=== PATIENT | female | born 1990 | race Caucasian/White ===

== ENCOUNTER 2019-08-23 23:18 | Emergency (ER) | payer SELFPAY ==
[~2019-08-23] VITALS: Ht 157.5 cm; Wt 101.2 kg
[2019-08-23] MEDS ORDERED: BUTORPHANOL 2 MG VIAL. IM ONE (23:45)
[2019-08-23] MEDS ORDERED: METOCLOPRAMIDE HCL 10 MG/2 ML VIAL. IM ONE (23:45)
[2019-08-23] MEDS ORDERED: DEXAMETHASONE SOD PHOS 10 MG/ML VIAL. IM ONE (23:45)
--- NOTE | 2019-08-23 23:55 | PHYS DOC ---
Past History Past Medical History: Migraines Past Surgical History: Cholecystectomy, , Tubal ligation Alcohol Use: Occasionally General Adult EDM: Chief Complaint: HEADACHE HPI: HPI: Patient is a 29-year-old female who presents with complaint of headache for the last 5 days. Patient states that she has a history of migraines and this is typical of her migraines. Patient states that Imitrex is not working for her headache but she does admit that she has not taken it in over a week. Patient states that she does not like the way it makes her feel. She rates pain at a 7 to an 8 out of 10. Patient denies any fever. She states that she has had some nausea and some vomiting. She does indicate that she has photophobia and phonophobia associated with a headache. [] Review of Systems: Review of Systems: Constitutional: Denies fever or chills Eyes: Denies change in visual acuity Respiratory: Denies cough or shortness of breath Cardiovascular: Denies chest pain or edema GI: Denies abdominal pain, nausea, vomiting or diarrhea Neurologic: Complains of headache without focal weakness or sensory changes Heart Score: Risk Factors: Risk Factors: DM, Current or recent (<one month) smoker, HTN, HLP, family history of CAD, obesity. Risk Scores: Score 0 - 3: 2.5% MACE over next 6 weeks - Discharge Home Score 4 - 6: 20.3% MACE over next 6 weeks - Admit for Clinical Observation Score 7 - 10: 72.7% MACE over next 6 weeks - Early Invasive Strategies Current Medications: Current Meds: Current Medications Medications (Trade) Dose Ordered [facility] Start Time Stop Time Status Last Admin Dose Admin Butorphanol Tartrate (Stadol) 2 mg 1X ONCE 08/23/19 23:45 08/23/19 23:46 DC 08/23/19 23:49 2 MG Dexamethasone Sodium Phosphate (Decadron) 10 mg 1X ONCE 08/23/19 23:45 08/23/19 23:46 DC 08/23/19 23:49 10 MG Metoclopramide HCl (Reglan Vial) 10 mg 1X ONCE 08/23/19 23:45 08/23/19 23:46 DC 08/23/19 23:48 10 MG Allergies: Allergies: Allergies Coded Allergies Type Severity Reaction Last Updated Verified Unable to Assess 08/23/19 No Physical Exam: PE: Constitutional: Well developed, well nourished, no acute distress, non-toxic appearance. [] HENT: Normocephalic, atraumatic, bilateral external ears normal, oropharynx moist, no oral exudates, nose normal. [] Eyes: PERRLA, EOMI, conjunctiva normal, no discharge. [] Cardiovascular: Regular rate and rhythm [] Lungs & Thorax: Bilateral breath sounds clear to auscultation [] Extremities: No tenderness, no cyanosis, no clubbing, ROM intact, no edema. [] Neurologic: Alert and oriented X 3, no focal deficits noted. [] Current Patient Data: Vital Signs: Vital Signs Date Time Temp Pulse Resp B/P (MAP) Pulse Ox O2 Delivery O2 Flow Rate FiO2 08/23/19 23:49 20 96 Room Air 08/23/19 23:36 98.3 95 128/81 (97) EKG: EKG: [] Radiology/Procedures: Radiology/Procedures: [] Course & Med Decision Making: Course & Med Decision Making Pertinent Labs and Imaging studies reviewed. (See chart for details) [] Dragon Disclaimer: Dragon Disclaimer: This electronic medical record was generated, in whole or in part, using a voice recognition dictation system. Departure Departure: Impression: Primary Impression: Migraine Qualified Codes: G43.909 - Migraine, unspecified, not intractable, without status migrainosus Disposition: HOME/RESIDENCE PRIOR TO ADM Condition: STABLE Referrals: PCP,NO (PCP) Patient Instructions: Migraine Headache Scripts Butalbital/Aspirin/Caffeine (FIORINAL 50-325-40 MG CAPSULE) 1 Each Capsule 1 EACH PO Q6HRS PRN for HEADACHE, #14 CAP Prov: SHANTELLE PENA Jr. DO 08/24/19 Ondansetron (ONDANSETRON ODT) 4 Mg Tab.rapdis 1 TAB PO PRN Q6-8HRS PRN for NAUSEA, #12 TAB Prov: SHANTELLE PENA Jr. DO 08/24/19 SHANTELLE PENA Jr. DO August 23, 2019 23:55
[2019-08-24] MEDS ORDERED: ONDA4TAB12 PO (00:34)
[2019-08-24] MEDS ORDERED: BUTA1CAP31 PO (00:34)
[2019-08-24 00:47] VITALS: BP 132/82
== END 2019-08-24 00:48 | disposition home or self-care (01) ==
LOC: ER 23:18
DX: G43.909 Migraine, unspecified, not intractable, without status migrainosus (principal); R11.2 Nausea with vomiting, unspecified
CPT/HCPCS: 96372; 99284; J0595; J1100; J2765

== ENCOUNTER 2019-08-24 09:01 | Emergency (ER) | payer SELFPAY ==
[~2019-08-24] VITALS: Ht 157.5 cm; Wt 101.2 kg
[~2019-08-24 09:01] MED LIST: BUTA1CAP31 PO; ONDA4TAB12 PO
--- NOTE | 2019-08-24 09:14 | PHYS DOC ---
Past History Past Medical History: Migraines Past Surgical History: Cholecystectomy, , Tubal ligation Alcohol Use: Occasionally General Adult HPI: HPI: 29-year-old female past medical history significant for migraine headaches (diagnosed by pmd Dr. Sagastume-was referred to neurology, Dr. Weathers, no h/o MRI), presents to the ED as a bounce back, (was seen here yesterday fro migraine headache), with complaints of bilateral gradual onset frontal and occipital headache that has been waxing and waning for the past 5 days. Yesterday was treated with IM medications, did not fill her prescriptions and states she's had no relief with Tylenol ibuprofen. Patient states she came back this morning because around 830 when she woke up felt as if her right hand was shaking-lasted for approximately 10 seconds. Reports associated photophobia, phonophobia, no preceding aura. Is concerned for the duration of her headache and for a "tumor." Does admit to cervical chiropractor adjustments. No family history of head or neck cancer, aneurysms or intracranial hemorrhage. Patient takes no routine medications. Does admit to tobacco use. Denies any drug use including cocaine and methamphetamines. Denies any head/neck trauma or injury. No recent head/neck infections. On no control. No recent head/neck infection. ROS: Denies associated fever, chills, dyspnea, chest pain or pressure, cough, sore throat, nausea, vomiting, hemoptysis, diarrhea, blurry vision, syncope, dizziness, ataxia, earache, rash, leg swelling, night sweats, weight loss. Allergies: Allergies: Allergies Coded Allergies Type Severity Reaction Last Updated Verified Unable to Assess 08/23/19 No Physical Exam: PE: Constitutional: Well developed, well nourished, no acute distress, non-toxic appearance. [] HENT: Normocephalic, atraumatic, bilateral external ears normal, oropharynx moist, no oral exudates, nose normal. [] Eyes: PERRLA, EOMI, conjunctiva normal, no discharge. [] Neck: Normal range of motion, no tenderness, supple, no stridor, no stiffness, rigidity or meningismus Cardiovascular:Heart rate regular rhythm, no murmur [] Lungs & Thorax: Bilateral breath sounds clear to auscultation [] Abdomen: Bowel sounds normal, soft, no tenderness, no masses, no pulsatile masses. [] Skin: Warm, dry, no erythema, no rash. [] Back: No tenderness, no CVA tenderness. [] Extremities: No tenderness, no cyanosis, no clubbing, ROM intact, no edema, 5/5 equal UE MS Neurologic: Alert and oriented X 3, normal motor function, normal sensory function, no focal deficits noted, cranial nerves II through XII intact, Psychologic: Affect normal, judgement normal, mood normal. [] Radiology/Procedures: Radiology/Procedures: IMAGING REPORT Signed PATIENT: FABIAN REN ACCOUNT: [id number] : 1990 LOCATION: ER AGE: 29 SEX: F EXAM STATUS: REG ER ORD. PHYSICIAN: CLAUDY HUSAIN DO REASON: headache PROCEDURE: CT HEAD WO CONTRAST CT HEAD WITHOUT CONTRAST 08/24/2019 9:13 AM Indication: Headache Comparison: None Procedure: Multidetector CT imaging of the head was performed without the administration of contrast. Findings: There is no evidence of acute intracranial hemorrhage. There is no evidence of acute territorial infarction. Please note that CT is limited for evaluation of acute ischemia. No mass effect or midline shift is identified . The ventricles and basilar cisterns have an appropriate appearance. No abnormal extra-axial fluid collections are seen. No acute osseous changes are identified. Impression: No evidence of acute intracranial abnormality CT DOSING PQRS STATEMENT: One or more of the following individualized dose reduction techniques were utilized for this examination: 1. Automated exposure control 2. Adjustment of the mA and/or kV according to patient size 3. Use of iterative reconstruction technique Electronically signed by: Yousif Solis MD (08/24/2019 10:13 AM) [id number] DICTATED AND SIGNED BY: YOUSIF SOLIS MD DATE: 08/24/19 1013 CC: PCP,ARMANDO; CLAUDY HUSAIN DO ~ IMAGING REPORT Signed PATIENT: FABIAN REN ACCOUNT: [id number] : 1990 LOCATION: ER AGE: 29 SEX: F EXAM STATUS: REG ER ORD. PHYSICIAN: CLAUDY HUSAIN DO REASON: headache, neck pain PROCEDURE: CT ANGIOGRAPHY HEAD AND NECK STUDY: CT angiography of the head and neck INDICATION: Headache. Neck pain. COMPARISON: No prior angiographic study is available for review. TECHNIQUE: Axial CT imaging of the head and neck utilizing angiography protocol and performed after the intravenous administration of 100 cc Omnipaque 350 contrast. Multiplanar reformats and 3D MIP acquisitions were obtained. Encountered areas of stenosis are measured per NASCET criteria. One or more of the following individualized dose reduction techniques were utilized for this examination: 1. Automated exposure control 2. Adjustment of the mA and/or kV according to patient size 3. Use of iterative reconstruction technique. FINDINGS: CTA NECK: Arch/Proximal Great Vessels: Unremarkable. Carotid Bifurcation/Cervical ICA: Widely patent to the skull base. Vertebral Arteries: No stenosis or dissection. CTA HEAD: Posterior Circulation: No stenosis, branch vessel occlusion or aneurysm. Anterior Circulation: No stenosis, branch vessel occlusion or aneurysm. Veins: Patent dural sinuses and major intracerebral veins. MISCELLANEOUS: None. IMPRESSION: CT Angio Neck: 1. No stenosis or dissection throughout the extracranial carotid or vertebral arteries. CT Angio Head: 1. No stenosis, branch vessel occlusion or aneurysm throughout the anterior or posterior cerebral circulations. Electronically signed by: LEXA CAMACHO MD (08/24/2019 10:36 AM) [id number] DICTATED AND SIGNED BY: LEXA CAMACHO MD DATE: 08/24/19 1036 CC: PCP,NO; CLAUDY HUSAIN DO ~ Impressions: Labs/coags wnl.No acute process on ct head w/o contrast and angio head/neck. Concern for migraine x 5 days, cannot exlcude cerebral venous thrombosis. Pt with almost near resolution of sxs in ed. Offered transfer for MRI/admission-she reports she feels well to go home and follow-up outpatient. Will be given outpatient neurology information and PMD follow-up. Pt educated to pursue outpt MRI. Strict ED return precautions for neurologic deficits, headache, blurry vision or nausea and vomiting. Will not prescribe any new medications, patient has not attempted medications prescribed yesterday. All of patient's questions were answered and she was stable at time of discharge. Course & Med Decision Making: Course & Med Decision Making Pertinent Labs and Imaging studies reviewed. (See chart for details) I spoken with the patient and her caregivers. I explained the patient's condition, diagnoses and treatment plan based on the information available to me at this time. I have answered the patient and her caregiver's questions and addressed any concerns. The patient and her caregivers have a good understanding of patient's diagnosis, condition and treatment plan as can be expected at this point. Vital signs have been stable. Patient's condition is stable and appropriate for discharge from the emergency department. Patient will pursue further outpatient evaluation with primary care physician or other designated or consulting physician as outlined in the discharge instructions. The patient and/or caregivers are agreeable to this plan of care and follow-up instructions have been explained in detail. The patient and/or caregivers have received these instructions in written form and have expressed an understanding of the discharge instructions. The patient and/or caregivers are aware that any significant change of condition or worsening of symptoms should prompt immediate return to this or the closest emergency department or call to 911. Laila Disclaimer: Laila Disclaimer: This electronic medical record was generated, in whole or in part, using a voice recognition dictation system. Departure Departure: Impression: Primary Impression: Headache Disposition: 01 HOME/RESIDENCE PRIOR TO ADM Condition: STABLE Referrals: PCP,NO (PCP) Patient Instructions: General Headache Without Cause CLAUDY HUSAIN DO August 24, 2019 09:14
[2019-08-24] MEDS ORDERED: IOHEXOL 350 MG/ML 100 ML VIAL. IV ONE (09:40)
[2019-08-24] MEDS ORDERED: METOCLOPRAMIDE HCL 10 MG/2 ML VIAL. IVP ONE (09:40)
[2019-08-24] MEDS ORDERED: PROCHLORPERAZINE 10 MG/2 ML VIAL. IV ONE (09:40)
[2019-08-24] MEDS ORDERED: IV NORMAL SALINE 1,000ML 1,000 ML IV ONE (09:40)
[2019-08-24] MEDS ORDERED: DEXAMETHASONE SOD PHOS 10 MG/ML VIAL PO ONE (09:40)
[2019-08-24] MEDS ORDERED: CONTRAST GIVEN MC PRN (09:45)
[2019-08-24 09:54] LABS: BASO # 0.1 x10^3/uL (0.0-0.2); BASO % 1 % (0-3); EOS % 0 % (0-3); HEMATOCRIT 46.1 % (36.0-47.0); HEMOGLOBIN 15.5 g/dL (12.0-15.5); LYMPH # 0.8 x10^3/uL (1.0-4.8); LYMPH % 7 % (24-48); MEAN CORPUSCULAR HEMOGLOBIN 31 pg (25-35); MEAN CORPUSCULAR HGB CONC 34 g/dL (31-37); MEAN CORPUSCULAR VOLUME 93 fL (79-100); MONO # 0.1 x10^3/uL (0.0-1.1); MONO % 1 % (0-9); NEUT # 9.9 x10^3uL (1.8-7.7); NEUT % 91 % (31-73); PLATELET COUNT 264 x10^3/uL (140-400); RED BLOOD COUNT 4.98 x10^6/uL (3.50-5.40); RED CELL DISTRIBUTION WIDTH 12.9 % (11.5-14.5); WHITE BLOOD COUNT 10.9 x10^3/uL (4.0-11.0)
[2019-08-24 10:04] LABS: CALCIUM 9.3 mg/dL (8.5-10.1); CREATININE 0.7 mg/dL (0.6-1.0); GFR 98.3; POTASSIUM 4.4 mmol/L (3.5-5.1)
[2019-08-24 10:10] LABS: ALBUMIN 4.3 g/dL (3.4-5.0); ALBUMIN/GLOBULIN RATIO 1.2 (1.0-1.7); TOTAL BILIRUBIN 0.4 mg/dL (0.2-1.0); TOTAL PROTEIN 7.8 g/dL (6.4-8.2)
--- NOTE | 2019-08-24 10:16 | RAD ---
CT HEAD WITHOUT CONTRAST 08/24/2019 9:13 AM Indication: Headache Comparison: None Procedure: Multidetector CT imaging of the head was performed without the administration of contrast. Findings: There is no evidence of acute intracranial hemorrhage. There is no evidence of acute territorial infarction. Please note that CT is limited for evaluation of acute ischemia. No mass effect or midline shift is identified . The ventricles and basilar cisterns have an appropriate appearance. No abnormal extra-axial fluid collections are seen. No acute osseous changes are identified. Impression: No evidence of acute intracranial abnormality CT DOSING PQRS STATEMENT: One or more of the following individualized dose reduction techniques were utilized for this examination: 1. Automated exposure control 2. Adjustment of the mA and/or kV according to patient size 3. Use of iterative reconstruction technique Electronically signed by: Yousif Peña MD (08/24/2019 10:13 AM) [id number]
[2019-08-24 10:20] VITALS: BP 137/96
--- NOTE | 2019-08-24 10:38 | RAD ---
STUDY: CT angiography of the head and neck INDICATION: Headache. Neck pain. COMPARISON: No prior angiographic study is available for review. TECHNIQUE: Axial CT imaging of the head and neck utilizing angiography protocol and performed after the intravenous administration of 100 cc Omnipaque 350 contrast. Multiplanar reformats and 3D MIP acquisitions were obtained. Encountered areas of stenosis are measured per NASCET criteria. One or more of the following individualized dose reduction techniques were utilized for this examination: 1. Automated exposure control 2. Adjustment of the mA and/or kV according to patient size 3. Use of iterative reconstruction technique. FINDINGS: CTA NECK: Arch/Proximal Great Vessels: Unremarkable. Carotid Bifurcation/Cervical ICA: Widely patent to the skull base. Vertebral Arteries: No stenosis or dissection. CTA HEAD: Posterior Circulation: No stenosis, branch vessel occlusion or aneurysm. Anterior Circulation: No stenosis, branch vessel occlusion or aneurysm. Veins: Patent dural sinuses and major intracerebral veins. MISCELLANEOUS: None. IMPRESSION: CT Angio Neck: 1. No stenosis or dissection throughout the extracranial carotid or vertebral arteries. CT Angio Head: 1. No stenosis, branch vessel occlusion or aneurysm throughout the anterior or posterior cerebral circulations. Electronically signed by: LEXA CAMACHO MD (08/24/2019 10:36 AM) [id number]
[2019-08-24] MEDS ORDERED: KETOROLAC 30 MG/ML VIAL. IVP ONE (11:15)
== END 2019-08-24 11:15 | disposition home or self-care (01) ==
LOC: ER 09:01
DX: G43.909 Migraine, unspecified, not intractable, without status migrainosus (principal)
CPT/HCPCS: 36415; 70450; 70496; 70498; 80053; 81025; 85025; 85610; 85730; 96374; 96375; 99285; J0780; J1100; J1885; J2765; Q9967; J7030

== ENCOUNTER 2019-11-30 07:56 | Emergency (ER) | payer SELFPAY ==
[~2019-11-30] VITALS: Ht 157.5 cm; Wt 88.6 kg
[2019-11-30 08:08] VITALS: BP 137/78
[2019-11-30] MEDS ORDERED: METOCLOPRAMIDE HCL 10 MG/2 ML VIAL. IVP ONE ×2 (08:15→10:45)
[2019-11-30] MEDS ORDERED: diphenhydrAMINE 50 MG/ML VIAL IVP ONE (08:15)
[2019-11-30] MEDS ORDERED: IV NORMAL SALINE 1,000ML 1,000 ML IV ONE (08:15)
[2019-11-30] MEDS ORDERED: KETOROLAC 30 MG/ML VIAL. IVP ONE (08:15)
--- NOTE | 2019-11-30 08:46 | PHYS DOC ---
Past History Past Medical History: No Pertinent History Past Surgical History: Cholecystectomy, , Tubal ligation Alcohol Use: Occasionally General Adult EDM: Chief Complaint: HEADACHE HPI: HPI: 29 yo female presents with headache. She has a global throbbing headache. This is similar to previous headaches. She has been diagnosed with migraines. She took 1g of Tylenol and her "headache medicine" without any relief. She has nausea and a single episode of vomiting. She denies fever or chills. She has no other complaints at this time. Review of Systems: Review of Systems: Constitutional: Denies fever or chills Eyes: Denies change in visual acuity HENT: Denies nasal congestion or sore throat Respiratory: Denies cough or shortness of breath Cardiovascular: Denies chest pain or edema GI: nausea, vomiting. Denies abdominal pain, bloody stools or diarrhea : Denies dysuria Musculoskeletal: Denies back pain or joint pain Integument: Denies rash Neurologic: Headache. Denies focal weakness or sensory changes Endocrine: Denies polyuria or polydipsia Lymphatic: Denies swollen glands Psychiatric: Denies depression or anxiety Heart Score: Risk Factors: Risk Factors: DM, Current or recent (<one month) smoker, HTN, HLP, family history of CAD, obesity. Risk Scores: Score 0 - 3: 2.5% MACE over next 6 weeks - Discharge Home Score 4 - 6: 20.3% MACE over next 6 weeks - Admit for Clinical Observation Score 7 - 10: 72.7% MACE over next 6 weeks - Early Invasive Strategies Current Medications: Current Meds: Current Medications Medications (Trade) Dose Ordered [facility] Start Time Stop Time Status Last Admin Dose Admin Diphenhydramine HCl (Benadryl) 25 mg 1X ONCE 11/30/19 08:15 11/30/19 08:26 DC Ketorolac Tromethamine (Toradol 30mg Vial) 30 mg 1X ONCE 11/30/19 08:15 11/30/19 08:16 DC Metoclopramide HCl (Reglan Vial) 10 mg 1X ONCE 11/30/19 08:15 11/30/19 08:16 DC Sodium Chloride 1,000 ml @ 1,000 mls/hr 1X ONCE 11/30/19 08:15 11/30/19 09:14 Allergies: Allergies: Allergies Coded Allergies Type Severity Reaction Last Updated Verified No Known Drug Allergies 08/24/19 No Physical Exam: PE: Constitutional: Well developed, well nourished, obese, no acute distress, non- toxic appearance. [] HENT: Normocephalic, atraumatic, bilateral external ears normal, oropharynx moist, no oral exudates, nose normal. [] Eyes: PERRLA, EOMI, conjunctiva normal, no discharge. [] Neck: Normal range of motion, no tenderness, supple, no stridor. [] Cardiovascular: Heart rate regular rhythm, no murmur [] Lungs & Thorax: Bilateral breath sounds clear to auscultation [] Abdomen: Bowel sounds normal, soft, no tenderness, no masses, no pulsatile masses. [] Skin: Warm, dry, no erythema, no rash. [] Back: No tenderness, no CVA tenderness. [] Extremities: No tenderness, no cyanosis, no clubbing, ROM intact, no edema. [] Neurologic: Alert and oriented X 3, normal motor function, normal sensory function, no focal deficits noted. [] Psychologic: Affect normal, judgement normal, mood normal. [] Current Patient Data: Vital Signs: Vital Signs Date Time Temp Pulse Resp B/P (MAP) Pulse Ox O2 Delivery O2 Flow Rate FiO2 11/30/19 08:08 98.5 113 18 137/78 (97) 95 Room Air EKG: EKG: [] Radiology/Procedures: Radiology/Procedures: [] Impressions: CT HEAD WO CONTRAST Date: 11/30/2019 11:32 AM Clinical Indication: Reason: headache, intractable / Spl. Instructions: / History: Comparison: 08/24/2019. Technique: 5 mm axial tomographic images were obtained of the head without contrast. These were viewed on brain and bone windows. One or more of the following dose reduction techniques were utilized: Automated exposure control (AEC), Adjustment of mA and/or kV according to patient size, Use of iterative reconstruction technique such as ASiR, CT scan done according to ALARA and image gently/image wisely Findings: The brain parenchyma is normal in attenuation. No intra- or extra-axial mass or fluid collection. No acute hemorrhage. The ventricles are normal in size, shape, and morphology. The monterroso-white matter junction is normal. The subarachnoid cisterns are patent. Secretions in the sphenoid sinus on the right. The visualized portions of the orbits and globes are normal. The mastoid air cells are clear. The neuroscience director na topogram shows no lytic lesion or fracture. Impression: No acute intracranial process. Electronically signed by: Jimmy Mauro MD (11/30/2019 11:47 AM) [id number] DICTATED AND SIGNED BY: JIMMY MAURO MD DATE: 11/30/19 1147 CC: JOSE D HUGHES DO; PCP,NO ~ Course & Med Decision Making: Course & Med Decision Making Pertinent Labs and Imaging studies reviewed. (See chart for details) The patient's labs are unremarkable. Her urinalysis is negative for infection. She is not . Head CT is unremarkable. I have given her a liter normal saline, 10 mg Reglan, 30 mg of Toradol for her headache. I have given her a second dose of Reglan and 2 mg of morphine. She is a bit better at this time. She is stable for discharge. [] Dragon Disclaimer: Dragon Disclaimer: This electronic medical record was generated, in whole or in part, using a voice recognition dictation system. Departure Departure: Impression: Primary Impression: Migraine headache Qualified Codes: G43.019 - Migraine without aura, intractable, without status migrainosus Disposition: HOME/RESIDENCE PRIOR TO ADM Condition: STABLE Referrals: PCP,ARMANDO (PCP) Patient Instructions: Migraine Headache, [id number] Justification of Admission: Justification of Admission: Justification of Admission Dx: N/A JOSE D HUGHES DO Nov 30, 2019 08:46
[2019-11-30 09:00] LABS: CALCIUM 8.7 mg/dL (8.5-10.1); CREATININE 0.9 mg/dL (0.6-1.0); GFR 73.5; POTASSIUM 4.2 mmol/L (3.5-5.1)
[2019-11-30 09:06] LABS: ALBUMIN 3.9 g/dL (3.4-5.0); ALBUMIN/GLOBULIN RATIO 1.2 (1.0-1.7); TOTAL BILIRUBIN 0.3 mg/dL (0.2-1.0); TOTAL PROTEIN 7.1 g/dL (6.4-8.2)
[2019-11-30 09:57] LABS: BACTERIA,URINE 0 /HPF (0-FEW); BILIRUBIN,URINE NEG (NEG); CLARITY,URINE CLEAR; COLOR,URINE YELLOW; GLUCOSE,URINE NEG (NEG); NITRITE,URINE NEG (NEG); RBC,URINE OCC /HPF (0-2); SQUAMOUS EPITHELIAL CELL,UR MOD /LPF; UROBILINOGEN,URINE 0.2 mg/dL (0.2 mg/dL); WBC,URINE OCC /HPF (0-4)
[2019-11-30 10:09] LABS: BASO % 1 % (0-3); EOS # 0.1 x10^3/uL (0.0-0.7); EOS % 1 % (0-3); HEMATOCRIT 40.4 % (36.0-47.0); HEMOGLOBIN 13.5 g/dL (12.0-15.5); LYMPH # 1.7 x10^3/uL (1.0-4.8); LYMPH % 24 % (24-48); MEAN CORPUSCULAR HEMOGLOBIN 31 pg (25-35); MEAN CORPUSCULAR HGB CONC 34 g/dL (31-37); MEAN CORPUSCULAR VOLUME 93 fL (79-100); MONO # 0.3 x10^3/uL (0.0-1.1); MONO % 5 % (0-9); NEUT % 70 % (31-73); PLATELET COUNT 209 x10^3/uL (140-400); RED BLOOD COUNT 4.32 x10^6/uL (3.50-5.40); RED CELL DISTRIBUTION WIDTH 12.2 % (11.5-14.5); WHITE BLOOD COUNT 7.1 x10^3/uL (4.0-11.0)
[2019-11-30] MEDS ORDERED: MORPHINE SULFATE 2 MG/ML DISP.SYRIN. IV ONE (10:45)
[2019-11-30] MEDS ORDERED: DEXAMETHASONE SOD PHOS 10 MG/ML VIAL. IV ONE (10:45)
--- NOTE | 2019-11-30 11:50 | RAD ---
CT HEAD WO CONTRAST Date: 11/30/2019 11:32 AM Clinical Indication: Reason: headache, intractable / Spl. Instructions: / History: Comparison: 08/24/2019. Technique: 5 mm axial tomographic images were obtained of the head without contrast. These were viewed on brain and bone windows. One or more of the following dose reduction techniques were utilized: Automated exposure control (AEC), Adjustment of mA and/or kV according to patient size, Use of iterative reconstruction technique such as ASiR, CT scan done according to ALARA and image gently/image wisely Findings: The brain parenchyma is normal in attenuation. No intra- or extra-axial mass or fluid collection. No acute hemorrhage. The ventricles are normal in size, shape, and morphology. The monterroso-white matter junction is normal. The subarachnoid cisterns are patent. Secretions in the sphenoid sinus on the right. The visualized portions of the orbits and globes are normal. The mastoid air cells are clear. The interior design program chair topogram shows no lytic lesion or fracture. Impression: No acute intracranial process. Electronically signed by: Errol Escobar MD (11/30/2019 11:47 AM) [id number]
== END 2019-11-30 12:36 | disposition home or self-care (01) ==
LOC: ER 07:56
DX: G43.019 Migraine without aura, intractable, without status migrainosus (principal); R11.2 Nausea with vomiting, unspecified
CPT/HCPCS: 36415; 70450; 80053; 81001; 81025; 85025; 96361; 96374; 96375; 96376; 99284; J1100; J1885; J2270; J2765; J7030; 96360

== ENCOUNTER 2020-06-24 20:17 | Emergency (ER) | payer MEDICAID ==
[~2020-06-24] VITALS: Ht 157.5 cm; Wt 95.7 kg
[2020-06-24 20:20] VITALS: BP 138/88
--- NOTE | 2020-06-24 21:19 | PHYS DOC ---
Past History Past Medical History: GERD, Kidney Stones, Migraines Past Surgical History: Cholecystectomy, , Tubal ligation, Other Additional Past Surgical Histo: kidney stones Alcohol Use: None General Adult EDM: Chief Complaint: HEMATEMESIS/VOMITING BLOOD HPI: HPI: " .. My stomach is been so upset all day I only had cereal for breakfast but then I got nauseated and vomited some bloody looking material this is what was in the stool...( Patient does appear to have some blood clots in stool. By phone patient)... " My mother had ovarian cancer and I am worried that I have ov davy cancer now since I vomited looks like blood. ...:' Patient is a 29 year old female who presents with above hx and complaints of vomiting some blood. Pt.states her stomach as been up set all day. Patient is had no lower abdomen pain or dysfunctional uterine bleeding. No history of coagulopathy. Does take a lot of NSAIDs naproxen, ibuprofen, other anti- inflammatories for periodic headaches. Patient does smoke tobacco. Patient denies any history immunosuppression. Patient denies any history of IV drug use. Patient denies any family history of coagulopathy or protein S C or other coagulopathic diagnoses. Patient denies any dark or tarry stools. 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 Patient never had a EGD or colonoscopy. Patient states her menstruations have been somewhat consistent and normal for her. Patient localized discomfort in her stomach at the epigastric area. Does have reports of GERD complaints that goes up into her mid chest. Patient denies any history of cardiac disease. Patient denies any recent travel. Rocephin ill contacts. Patient does have a pet bulldog named Anastasia who is well and up-to-date vaccination not ill. Review of Systems: Review of Systems: Constitutional: Denies fever or chills Eyes: Denies change in visual acuity HENT: Denies nasal congestion or sore throat Respiratory: Denies cough or shortness of breath Cardiovascular: Complains of midsternal chest pain with vomiting. GI: Complains of epigastric abdominal pain, nausea, vomiting. Denies, bloody stools or diarrhea : Denies dysuria Musculoskeletal: Denies back pain or joint pain Integument: Denies rash Neurologic: Denies headache, focal weakness or sensory changes Endocrine: Denies polyuria or polydipsia Lymphatic: Denies swollen glands Psychiatric: Denies depression or anxiety Family History: Family History: Mother had ovarian cancer age 40. Current Medications: Current Meds: See nursing for home meds Allergies: Allergies: Allergies Coded Allergies Type Severity Reaction Last Updated Verified diphenhydramine Allergy Intermediate IV form 06/24/20 Yes Physical Exam: PE: Constitutional: Moderate acute distress, non-toxic appearance. [] HENT: Normocephalic, atraumatic, bilateral external ears normal, oropharynx moist, no oral exudates, nose normal. [] Eyes: PERRLA, EOMI, conjunctiva normal, no discharge. [] Neck: Normal range of motion, no tenderness, supple, no stridor. [] Cardiovascular:Heart rate regular rhythm, no murmur [] Lungs & Thorax: Bilateral breath sounds equal apex with few scattered wheezes auscultation [] Abdomen: Bowel sounds normal, soft, epigastric tenderness, no masses, no pulsatile masses. Rebound to epigastric. Patient declines rectal exam at this time. Multiple old surgery scars. Obese. Skin: Warm, dry, no erythema, no rash tattoos. Back: No tenderness, no CVA tenderness. [] Extremities: No tenderness, no cyanosis, no clubbing, ROM intact, no edema. No cording appreciated. No psoas sign. Neurologic: Alert and oriented X 3, moves all extremities on request. Does have distal sensory., no focal deficits noted. [] Psychologic: Affect very anxious, judgement normal, mood normal. [] Current Patient Data: Vital Signs: Vital Signs Date Time Temp Pulse Resp B/P (MAP) Pulse Ox O2 Delivery O2 Flow Rate FiO2 06/24/20 20:20 99.2 98 16 138/88 (105) 94 Room Air EKG: EKG: My interpretation of EKG shows a sinus rhythm at 85 bpm. There is some axis deviation. Right bundle branch block. No findings acute STEMI of contralateral changes. [] Radiology/Procedures: Radiology/Procedures: [][address] [address] IMAGING REPORT Signed PATIENT: FABIAN REN ACCOUNT: [id number] : 1990 LOCATION: ER AGE: 29 SEX: F EXAM STATUS: REG ER ORD. PHYSICIAN: JOSHUA GODWIN MD REASON: n/v pain PROCEDURE: ACUTE ABDOMEN SERIES Exam: Acute abdominal series INDICATION: Nausea vomiting, pain TECHNIQUE: Frontal view of the chest with upright and supine views of the abdomen Comparisons: None FINDINGS: The cardiomediastinal silhouette and pulmonary vessels are within normal limits. The lung and pleural spaces are clear. Air and stool are noted throughout the colon to level the rectum in a nonobstructive bowel gas pattern. No suspicious masses or calcifications. Visualized osseous structures are unremarkable. IMPRESSION: 1. No acute cardiopulmonary process. 2. Nonobstructive bowel gas pattern. Electronically signed by: Trenton Child MD (06/24/2020 10:22 PM) [facility] DICTATED AND SIGNED BY: TRENTON CHILD MD DATE: 06/24/202219 CC: JOSHUA GODWIN MD; PCP,NO ~MTH0 0 Heart Score: C/O Chest Pain: N/A Risk Factors: Risk Factors: DM, Current or recent (<one month) smoker, HTN, HLP, family history of CAD, obesity. Risk Scores: Score 0 - 3: 2.5% MACE over next 6 weeks - Discharge Home Score 4 - 6: 20.3% MACE over next 6 weeks - Admit for Clinical Observation Score 7 - 10: 72.7% MACE over next 6 weeks - Early Invasive Strategies Course & Med Decision Making: Course & Med Decision Making Pertinent Labs and Imaging studies reviewed. (See chart for details) Patient received Pepcid, Carafate, Zofran, and IV fluids. Patient reported marked relief of her discomfort. Did advise patient that labs looked within normal range. Advised patient that she would need to follow-up primary care. Consider taking Pepcid twice a day. Stay on a clear fluid diet. Return if any concerns. Advised patient she should complete her current IV fluids at that time suspect we will discharge. Encourage patient to stop smoking. Patient encouraged patient follow-up primary care. And consider EGD or formal GI follow-up. In the meantime patient apparently completed IV fluids but eloped without formal discharge. Impression: 1. Abdomen pain 2. History of nausea and vomiting [] Dragon Disclaimer: Dragon Disclaimer: This electronic medical record was generated, in whole or in part, using a voice recognition dictation system. Departure Departure: Referrals: PCP,NO (PCP) Laila Disclaimer This chart was dictated in whole or in part using Voice Recognition software in a busy, high-work load, and often noisy Emergency Department environment. It may contain unintended and wholly unrecognized errors or omissions. Dragon Disclaimer This chart was dictated in whole or in part using Voice Recognition software in a busy, high-work load, and often noisy Emergency Department environment. It may contain unintended and wholly unrecognized errors or omissions. JOSHUA GODWIN MD Jun 24, 2020 21:19
[2020-06-24] MEDS ORDERED: IV RINGERS SOLUTION,LACTATED 1,000 ML IV SCH (21:45)
[2020-06-24] MEDS ORDERED: ONDANSETRON PF 4 MG/2 ML VIAL. IVP ONE (22:00)
[2020-06-24] MEDS ORDERED: MAGNESIUM HYDROXIDE 2,400 MG/30 ML ORAL.SUSP. PO ONE (22:00)
[2020-06-24] MEDS ORDERED: SUCRALFATE 1 GM TABLET. PO ONE (22:00)
[2020-06-24] MEDS ORDERED: FAMOTIDINE 20 MG/2 ML VIAL IVP ONE (22:00)
[2020-06-24 22:25] LABS: BASO # 0.1 x10^3/uL (0.0-0.2); BASO % 1 % (0-3); EOS # 0.1 x10^3/uL (0.0-0.7); EOS % 1 % (0-3); HEMATOCRIT 44.2 % (36.0-47.0); HEMOGLOBIN 14.9 g/dL (12.0-15.5); LYMPH # 3.3 x10^3/uL (1.0-4.8); LYMPH % 32 % (24-48); MEAN CORPUSCULAR HEMOGLOBIN 32 pg (25-35); MEAN CORPUSCULAR HGB CONC 34 g/dL (31-37); MEAN CORPUSCULAR VOLUME 94 fL (79-100); MONO # 0.7 x10^3/uL (0.0-1.1); MONO % 7 % (0-9); NEUT # 6.2 x10^3uL (1.8-7.7); NEUT % 60 % (31-73); PLATELET COUNT 239 x10^3/uL (140-400); RED BLOOD COUNT 4.71 x10^6/uL (3.50-5.40); RED CELL DISTRIBUTION WIDTH 13.1 % (11.5-14.5); WHITE BLOOD COUNT 10.3 x10^3/uL (4.0-11.0)
--- NOTE | 2020-06-24 22:25 | RAD ---
Exam: Acute abdominal series INDICATION: Nausea vomiting, pain TECHNIQUE: Frontal view of the chest with upright and supine views of the abdomen Comparisons: None FINDINGS: The cardiomediastinal silhouette and pulmonary vessels are within normal limits. The lung and pleural spaces are clear. Air and stool are noted throughout the colon to level the rectum in a nonobstructive bowel gas patter n. No suspicious masses or calcifications. Visualized osseous structures are unremarkable. IMPRESSION: 1. No acute cardiopulmonary process. 2. Nonobstructive bowel gas pattern. Electronically signed by: Trenton Pavon MD (06/24/2020 10:22 PM) BONG
[2020-06-24 22:36] LABS: CALCIUM 9.8 mg/dL (8.5-10.1); CREATININE 0.6 mg/dL (0.6-1.0); GFR 117.4; POTASSIUM 4.3 mmol/L (3.5-5.1)
[2020-06-24 22:42] LABS: ALBUMIN 4.2 g/dL (3.4-5.0); DIRECT BILIRUBIN 0.1 mg/dL (0.0-0.2); TOTAL BILIRUBIN 0.2 mg/dL (0.2-1.0)
[2020-06-25 00:20] LABS: BARBITURATES NEG (NEG); BENZODIAZEPINES NEG (NEG); CANNABINOIDS NEG (NEG); COCAINE NEG (NEG); METHADONE NEG (NEG); OPIATES NEG (NEG); PHENCYCLIDINE NEG (NEG)
[2020-06-25 00:21] LABS: BILIRUBIN,URINE SMALL (NEG); CLARITY,URINE CLEAR; COLOR,URINE YELLOW; GLUCOSE,URINE NEG (NEG); NITRITE,URINE NEG (NEG); RBC,URINE 0 /HPF (0-2); WBC,URINE OCC /HPF (0-4)
[2020-06-25 00:22] LABS: BACTERIA,URINE 0 /HPF (0-FEW); SQUAMOUS EPITHELIAL CELL,UR FEW /LPF
[2020-06-25 00:24] LABS: AMPHETAMINE/METHAMPHETAMINE NEG (NEG)
== END 2020-06-24 23:12 | disposition left against medical advice (07) ==
LOC: ER 20:17
DX: R10.13 Epigastric pain (principal); R11.2 Nausea with vomiting, unspecified; R07.2 Precordial pain; K21.9 Gastro-esophageal reflux disease without esophagitis; G43.909 Migraine, unspecified, not intractable, without status migrainosus; Z87.442 Personal history of urinary calculi; Z90.49 Acquired absence of other specified parts of digestive tract; Z98.51 Tubal ligation status; Z88.5 Allergy status to narcotic agent
CPT/HCPCS: 36415; 74022; 80048; 80076; 80307; 81001; 82550; 83690; 84484; 84702; 85025; 85610; 85730; 96361; 96374; 96375; 99284; J2405; J3490; J7120

== ENCOUNTER → 2020-06-28 | Outpatient (CLI) | payer MEDICAID ==
[2020-06-24 20:20] VITALS: BP 138/88
--- NOTE | 2020-06-28 16:34 | RAD ---
INDICATION: Reason: BACK PAIN / Spl. Instructions: / History: COMPARISON: April 29, 2020. IMPRESSION: Lumbar spine: 3 views obtained. No acute fracture or dislocation. 3 mm calcification is seen on the r ight at the L4-5 level. Could be a calcification the soft tissues but cannot exclude urinary tract st one. Thoracic spine: 3 views obtained. There is some degenerative changes of the thoracic spine with osteophyte formation at the vertebral b chuy endplates. No evidence of dislocation. Mild wedging of the T10 vertebral body. Similar to prior. Electronically signed by: Aureliano Hewitt MD (06/28/2020 4:32 PM) [id number]
== END ==
LOC: RAD 11:13
PROVIDERS: ATTEND Family Medicine
DX: M47.814 Spondylosis without myelopathy or radiculopathy, thoracic region (principal); M25.78 Osteophyte, vertebrae
CPT/HCPCS: 72072; 72100

== ENCOUNTER → 2020-07-31 | Outpatient (CLI) | payer MEDICAID ==
--- NOTE | 2020-07-31 11:06 | RAD ---
Exam Date: 07/31/2020 10:[address] THORAX WO Indication: Reason: HEMOPTYSIS. / Spl. Instructions: / History: TECHNIQUE: CT scan of the chest was performed without intravenous contrast. One or more of the [facility] dose reduction techniques were utilized: *Automated exposure control (AEC) *Adjustment of mA and/or kV according to patient size *Use of iterative reconstruction technique *CT scan done according to ALARA, or ALARA/IMAGE GENTLY FINDINGS: The central airways are patent. There is no focal consolidation, pleural effusion or pneumothorax. The visualized thyroid gland is within normal limits. No lymphadenopathy is seen. The heart is normal in size without pericardial effusion. Aorta is normal in caliber with no significant atherosclerotic calcifications. Images of the upper abdomen demonstrate cholecystectomy clips. There is a 2 cm hypodense nodule in th e left adrenal gland measuring -3 Hounsfield units consistent with an adrenal adenoma. Osseous struct ures are intact. IMPRESSION: No focal consolidation. No acute abnormality. Left adrenal adenoma noted. Electronically signed by: Eliezer Steven MD (07/31/2020 11:04 AM) [id number]
== END ==
LOC: CT 10:20
PROVIDERS: ATTEND Family Medicine
DX: R04.2 Hemoptysis (principal); D35.02 Benign neoplasm of left adrenal gland; Z90.49 Acquired absence of other specified parts of digestive tract
CPT/HCPCS: 71250

== ENCOUNTER 2020-08-07 15:37 | Emergency (ER) | payer MEDICAID ==
[~2020-08-07] VITALS: Ht 157.5 cm; Wt 95.7 kg
--- NOTE | 2020-08-07 15:59 | PHYS DOC ---
Past History Past Medical History: GERD, Kidney Stones, Migraines Past Surgical History: Cholecystectomy, , Tubal ligation, Other Additional Past Surgical Histo: kidney stones Alcohol Use: None General Adult EDM: Chief Complaint: BACK PAIN OR INJURY HPI: HPI: 30-year-old female presents with lower thoracic pain and headache. Patient states that she has had a headache for about 3 days. It starts at the top of her neck and radiates up the back of her head. She says it feels different than her migraines. She tried to call her primary care physician but was unable to reach him. The back pain started today. She describes it as a sharp pain without radiation. She does not know what is causing it. She denies any trauma or overuse. Denies fever or chills. Review of Systems: Review of Systems: Constitutional: Denies fever or chills Eyes: Denies change in visual acuity HENT: Denies nasal congestion or sore throat Respiratory: Denies cough or shortness of breath Cardiovascular: Denies chest pain or edema GI: Denies abdominal pain, nausea, vomiting, bloody stools or diarrhea : Denies dysuria Musculoskeletal: Lower thoracic back pain Integument: Denies rash Neurologic: Headache. Denies focal weakness or sensory changes Endocrine: Denies polyuria or polydipsia Lymphatic: Denies swollen glands Psychiatric: Denies depression or anxiety Allergies: Allergies: Allergies Coded Allergies Type Severity Reaction Last Updated Verified diphenhydramine Allergy Intermediate IV form 06/24/20 Yes Physical Exam: PE: Constitutional: Well developed, well nourished, obese, no acute distress, non- toxic appearance. [] HENT: Normocephalic, atraumatic, bilateral external ears normal, oropharynx moist, no oral exudates, nose normal. [] Eyes: PERRLA, EOMI, conjunctiva normal, no discharge. [] Neck: Normal range of motion, muscle spasm and tenderness of the bilateral cervical paraspinal muscles. [] Cardiovascular: Heart rate regular rhythm, no murmur [] Lungs & Thorax: Bilateral breath sounds clear to auscultation [] Abdomen: Bowel sounds normal, soft, no tenderness, no masses, no pulsatile masses. [] Skin: Warm, dry, no erythema, no rash. [] Back: No tenderness, no CVA tenderness. [] Extremities: No tenderness, no cyanosis, no clubbing, ROM intact, no edema. [] Neurologic: Alert and oriented X 3, normal motor function, normal sensory function, no focal deficits noted. [] Psychologic: Affect normal, judgement normal, mood normal. [] Current Patient Data: Vital Signs: Vital Signs Date Time Temp Pulse Resp B/P (MAP) Pulse Ox O2 Delivery O2 Flow Rate FiO2 08/07/20 15:47 98.3 92 18 150/98 (115) 97 Room Air EKG: EKG: [] Radiology/Procedures: Radiology/Procedures: [] Heart Score: C/O Chest Pain: No Risk Factors: Risk Factors: DM, Current or recent (<one month) smoker, HTN, HLP, family history of CAD, obesity. Risk Scores: Score 0 - 3: 2.5% MACE over next 6 weeks - Discharge Home Score 4 - 6: 20.3% MACE over next 6 weeks - Admit for Clinical Observation Score 7 - 10: 72.7% MACE over next 6 weeks - Early Invasive Strategies Course & Med Decision Making: Course & Med Decision Making Pertinent Labs and Imaging studies reviewed. (See chart for details) The patient's labs are unremarkable. I do not believe imaging is warranted as there is no trauma. I will give the patient a short course of [place] for her pain and advised that she follow-up with her primary care physician. She is stable for discharge at this time. [] Dragon Disclaimer: Dragon Disclaimer: This electronic medical record was generated, in whole or in part, using a voice recognition dictation system. Departure Departure: Impression: Primary Impression: Low back pain Qualified Codes: M54.5 - Low back pain Disposition: HOME / SELF CARE / HOMELESS Condition: STABLE Referrals: MAGNO ZABALA MD (PCP) Patient Instructions: Low Back Strain with Rehab-SportsMed Scripts Hydrocodone/Acetaminophen (Hydrocodone-Acetamin 5-325 mg) 1 Each Tablet 1 EACH PO Q4-6HRS PRN for PAIN, #10 TAB Prov: JOSE D HUGHES DO 08/07/20 JOSE D HUGHES DO August 07, 2020 15:59
[2020-08-07] MEDS ORDERED: METOCLOPRAMIDE HCL 10 MG/2 ML VIAL. IVP ONE (16:00)
[2020-08-07] MEDS ORDERED: IV NORMAL SALINE 1,000ML 1,000 ML IV ONE (16:00)
[2020-08-07] MEDS ORDERED: KETOROLAC 30 MG/ML VIAL. IVP ONE (16:00)
[2020-08-07 16:34] LABS: BILIRUBIN,URINE NEG (NEG); CLARITY,URINE CLEAR; COLOR,URINE YELLOW; GLUCOSE,URINE NEG (NEG)
[2020-08-07 16:35] LABS: BACTERIA,URINE 0 /HPF (0-FEW); NITRITE,URINE NEG (NEG); SQUAMOUS EPITHELIAL CELL,UR OCC /LPF; WBC,URINE 0 /HPF (0-4)
[2020-08-07 16:42] LABS: BASO # 0.1 x10^3/uL (0.0-0.2); BASO % 1 % (0-3); EOS # 0.1 x10^3/uL (0.0-0.7); EOS % 1 % (0-3); HEMOGLOBIN 14.4 g/dL (12.0-15.5); LYMPH # 2.1 x10^3/uL (1.0-4.8); LYMPH % 21 % (24-48); MEAN CORPUSCULAR HEMOGLOBIN 32 pg (25-35); MEAN CORPUSCULAR HGB CONC 34 g/dL (31-37); MEAN CORPUSCULAR VOLUME 94 fL (79-100); MONO # 0.4 x10^3/uL (0.0-1.1); MONO % 4 % (0-9); NEUT # 7.3 x10^3uL (1.8-7.7); NEUT % 73 % (31-73); PLATELET COUNT 233 x10^3/uL (140-400); RED BLOOD COUNT 4.46 x10^6/uL (3.50-5.40); WHITE BLOOD COUNT 10.1 x10^3/uL (4.0-11.0)
[2020-08-07 16:51] LABS: CALCIUM 8.5 mg/dL (8.5-10.1); CREATININE 1.1 mg/dL (0.6-1.0); GFR 57.9; POTASSIUM 3.9 mmol/L (3.5-5.1)
[2020-08-07 16:57] LABS: ALBUMIN 3.8 g/dL (3.4-5.0); ALBUMIN/GLOBULIN RATIO 1.3 (1.0-1.7); TOTAL BILIRUBIN 0.2 mg/dL (0.2-1.0); TOTAL PROTEIN 6.7 g/dL (6.4-8.2)
[2020-08-07] MEDS ORDERED: HYDR-2759 PO (19:00)
[2020-08-07 19:02] VITALS: BP 127/80
== END 2020-08-07 19:02 | disposition home or self-care (01) ==
LOC: ER 15:47
DX: M54.5 Low back pain (principal); M54.6 Pain in thoracic spine; K21.9 Gastro-esophageal reflux disease without esophagitis; G43.909 Migraine, unspecified, not intractable, without status migrainosus; Z87.442 Personal history of urinary calculi; Z90.49 Acquired absence of other specified parts of digestive tract; Z98.890 Other specified postprocedural states; Z98.51 Tubal ligation status; Z88.8 Allergy status to other drugs, medicaments and biological substances
CPT/HCPCS: 36415; 80053; 81001; 85025; 96361; 96374; 96375; 99285; J1885; J2765; J7030

== ENCOUNTER 2020-10-27 20:01 | Emergency (ER) | payer MEDICAID ==
[~2020-10-27] VITALS: Ht 157.5 cm; Wt 95.7 kg
[~2020-10-27 20:01] MED LIST changes: +HYDR-2759 PO
--- NOTE | 2020-10-27 20:09 | PHYS DOC ---
Past History Past Medical History: GERD, Kidney Stones, Migraines Past Surgical History: Cholecystectomy, , Tubal ligation, Other Additional Past Surgical Histo: kidney stones Alcohol Use: None Adult General HPI HPI Patient is a 30-year-old female with a past medical history of migraines and GERD who presents to the emergency department with a chief complaint of 2 to 3 days of centralized lower chest discomfort, 6 out of 10, sharp in nature with no radiation. Denies any dyspnea on exertion, orthopnea, PND or edema. Denies any significant family history of coronary artery disease. Denies any recent traum as, travels, illnesses, fevers, abdominal pain, nausea, vomiting, diarrhea, dysuria, hematuria or blood in the stool. Denies any alcohol, tobacco or drug use. Review of Systems Review of Systems Review of systems otherwise unremarkable except noted in HPI Allergies Allergies Allergies Coded Allergies Type Severity Reaction Last Updated Verified diphenhydramine Allergy Intermediate IV form 06/24/20 Yes Physical Exam Physical Exam Constitutional: Well developed, well nourished, no acute distress, non-toxic appearance. [] HENT: Normocephalic, atraumatic, Eyes: conjunctiva normal, no discharge. [] Neck: Normal range of motion, no tenderness, Cardiovascular:Heart rate regular rhythm, no murmur [] Lungs & Thorax: Bilateral breath sounds clear to auscultation [] Abdomen: soft, no tenderness, no masses, no pulsatile masses. [] Skin: Warm, dry, no erythema, no rash. [] Back: No tenderness, no CVA tenderness. [] Extremities: No tenderness, ROM intact, no edema. [] Neurologic: Alert and oriented X 3, no focal deficits noted. [] Psychologic: Affect normal, judgement normal, mood normal. [] EKG EKG EKG with a rate of 95, QRS of 84, QTc of 458, no STEMI [] Radiology/Procedures Radiology/Procedures [] Heart Score C/O Chest Pain: Yes HEART Score for Chest Pain: HEART Score for Chest Pain Response (Comments) Value History Slighlty/Non-Suspicious 0 ECG Normal 0 Age < 45 0 Risk Factors No Risk Factors 0 Troponin < Normal Limit 0 Total 0 Risk Factors: Risk Factors: DM, Current or recent (<one month) smoker, HTN, HLP, family history of CAD, obesity. Risk Scores: Risk Factors: DM, Current or recent (<one month) smoker, HTN, HLP, family history of CAD, obesity. Course & Med Decision Making Course & Med Decision Making Patient is a 30-year-old female who presents with lower chest pain for 2 to 3 days Vital signs not concerning. Physical exam noted above. EKG noted above with no STEMI. Given aspirin. Given GI cocktail. Troponin normal. Chest x-ray not concerning. Some relief with GI cocktail. Discussed all findings with patient. Advised on pain management at home including Tylenol, Benadryl and PPI. Advised to follow-up first thing Thursday with her primary care physician to discuss ED visit. Gave return precautions to the ED. Patient grateful, verbalized understanding and agreed with plan of discharge. Dragon Disclaimer Dragon Disclaimer This electronic medical record was generated, in whole or in part, using a voice recognition dictation system. Departure Departure: Disposition: HOME / SELF CARE / HOMELESS Condition: GOOD Referrals: MAGNO ZABALA MD (PCP) Patient Instructions: Chest Pain (Nonspecific), Diet for Gastroesophageal Ref lux Disease, Adult, Heartburn Additional Instructions: Thank you for coming into the emergency department tonight and allowing us to take care of you. Please read all the attached information very carefully to go back over what we discussed. You can begin a Tylenol and Benadryl regimen at home as well as heartburn medicine for symptom control. Please adjust diet as discussed and noted in the attached information. Please call your primary care physician first thing Thursday to update on your ED visit and set up a follow-up visit. Please come back to the ED with new or concerning symptoms as discussed. GUSTAVO BANG MD Oct 27, 2020 20:09
[2020-10-27] MEDS ORDERED: ASPIRIN CHEWABLE 81 MG TABLET. PO ONE (20:30)
[2020-10-27] MEDS ORDERED: LIDO:MAALOX 1:1 20 ML SINGLE DOSE. PO ONE (20:30)
--- NOTE | 2020-10-27 20:54 | RAD ---
Exam: Chest one view INDICATION: Chest pain TECHNIQUE: Frontal view of the chest Comparisons: 07/31/2020 FINDINGS: The cardiomediastinal silhouette and pulmonary vessels are within normal limits. The lung and pleural spaces are clear. IMPRESSION: No acute cardiopulmonary process. Electronically signed by: Trenton Pavon MD (10/27/2020 8:52 PM) DARLINE
[2020-10-27 21:15] VITALS: BP 122/80
--- NOTE | 2020-10-29 13:59 | EKG ---
[address] [address] Test Date: 2020-10-27 Test Time: 20:10:41 Pat Name: FABIAN REN Department: Room: Gender: F [employer]: : 1990 Requested By: GUSTAVO BANG Order Number: [id number] Reading MD: Measurements Intervals [place] Rate: 95 P: 38 VT: 170 QRS: 82 QRSD: 84 T: 14 QT: 362 QTc: 458 Interpretive Statements SINUS RHYTHM NORMAL ECG RI6.02 No previous ECG available for comparison
== END 2020-10-27 21:19 | disposition home or self-care (01) ==
LOC: ER 20:01
DX: R07.89 Other chest pain (principal); K21.9 Gastro-esophageal reflux disease without esophagitis; Z88.8 Allergy status to other drugs, medicaments and biological substances; Z87.442 Personal history of urinary calculi; Z90.49 Acquired absence of other specified parts of digestive tract; Z98.51 Tubal ligation status
CPT/HCPCS: 36415; 71045; 81025; 84484; 93005; 99284-25

== ENCOUNTER 2020-11-06 23:06 | Emergency (ER) | payer MEDICAID ==
[~2020-11-06] VITALS: Ht 157.5 cm; Wt 86.6 kg
[2020-11-07] MEDS ORDERED: LIDO:MAALOX 1:1 20 ML SINGLE DOSE. PO ONE (00:30)
--- NOTE | 2020-11-07 00:59 | PHYS DOC ---
Past History Past Medical History: GERD, Kidney Stones, Migraines Past Surgical History: Cholecystectomy, , Tubal ligation Additional Past Surgical Histo: kidney stones Alcohol Use: None General Adult EDM: Chief Complaint: Epigastric pain, history of GERD HPI: HPI: 30-year-old female presents to the emergency department complaining of about 4 to 6 weeks of burning epigastric pain, patient endorses a cramping sensation in the epigastric region that she says is sometimes worse with eating, she experiences every day, is nonexertional, worse with deep breathing, denies any chest pain per se, no shortness of breath, no nausea or vomiting, no diaphoresis, no fever, chills, no coughing, no known history of cardiac disease or thromboembolism, no known family history of cardiac disease or thromboembolism, she is a non-smoker, no control pill or hormone usage. Is a smoker. Patient was seen here several weeks ago for similar symptoms and had a work-up that included x-ray, labs, EKG was referred to primary care was as if she had not made any follow-up. Review of Systems: Review of Systems: General: no fevers , no chills, no general weakness Eyes: no blurred vision, no diplopia Skin: no rashes Neck: no swelling, no neck stiffness, no neck pain Heme: no bleeding, no lymph node enlargement Ear/Nose/Throat: No sore throat, no runny nose, no hearing loss, no difficulty swallowing Cardiovascular: no Chest pain, no palpitations Respiratory: No dyspnea, no cough, no hemoptysis Gastrointestinal: +abdominal pain, no nausea, no vomiting, no diarrhea, no blood in stool Genitourinary: no dysuria, no hematuria Musculoskeletal: no back pain, no leg pain, no arm pain, no arthralgia Neurologic: no headaches, no dizziness, no focal numbness/tingling, no focal weakness Psych: no depression, no anxiety, no SI/HI *All review of systems are negative other than what is noted above Current Medications: Current Meds: Current Medications Medications (Trade) Dose Ordered Sig/Maikel Start Time Stop Time Status Last Admin Dose Admin Multi-Ingredient Mouthwash/Gargle (Gi Cocktail) 20 ml 1X ONCE 11/07/20 00:30 11/07/20 00:31 DC 11/07/20 00:32 20 ML Allergies: Allergies: Allergies Coded Allergies Type Severity Reaction Last Updated Verified diphenhydramine Allergy Intermediate IV form 06/24/20 Yes Physical Exam: PE: Gen-well appearing, no acute distress Head: Normocephalic/Atraumatic ENT: atraumatic, PERRLA, EOMI, oropharynx clear Neck: supple, full ROM/strength, no JVD, no nuchal rigidity Lungs: no distress, speaks in full sentences, Clear to auscultation bilaterally CV: reg rate, rhythm, no murmus/rubs/gallops, peripheral pulses equal in all extremities Abdomen: soft, there is mild epigastric tenderness to palpation, o guarding/rebound tenderness, no rigidity, non distended, normoactive bowel sounds Musculoskeletal: full ROM/strength in all extremities, atraumatic, no swelling Back: full range of motion/strength Skin: intact, no rashes Lymph: no gross PATRICK Neuro: alert and oriented x 4, CN 2-12 grossly intact, Motor strength is 5/5 in all extremities, no focal sensory deficits, no focal ataxia, ambulatory with steady gait Psych: normal mood/affect EKG: EKG: [] Twelve-lead EKG was done at 12:56 AM: Normal sinus rhythm, rate of 60, normal nonischemic appearing EKG with normal axis and intervals Radiology/Procedures: Radiology/Procedures: [] Heart Score: C/O Chest Pain: No Risk Factors: Risk Factors: DM, Current or recent (<one month) smoker, HTN, HLP, family history of CAD, obesity. Risk Scores: Score 0 - 3: 2.5% MACE over next 6 weeks - Discharge Home Score 4 - 6: 20.3% MACE over next 6 weeks - Admit for Clinical Observation Score 7 - 10: 72.7% MACE over next 6 weeks - Early Invasive Strategies Course & Med Decision Making: Course & Med Decision Making Pertinent Labs and Imaging studies reviewed. (See chart for details) [] 30-year-old female with a history of GERD presents to the emergency department complaining of epigastric pain is reproducible on exam, I believe this is likely persistent GERD/gastritis, important differential diagnosis in this patient include but not limited to gastroenteritis, costochondritis, unlike ly ACS, PE, dissection, pneumothorax, pneumonia unlikely, unlikely any acute intra-abdominal surgical process, no known risk factors for cardiac disease or thromboembolism, I do not believe that the heart score is applicable, but I will get an EKG at about of an abundance of caution, she is PERC negative for PE and I do not believe that she requires further work-up and can be eliminated with this validated risk stratification tool for very low risk patients. The abdomen itself is not tender, will do an x-ray, will give her a GI cocktail, she has had a cholecystectomy in the past, will reevaluate examine her during her work- up to determine the best course of action is a data becomes available Reevaluation 3:08 AM: Improved, abdomen nontender, she did have some RBCs in the urine and a history of kidney stones however in light of clinical improvement and otherwise negative work-up I believe she is stable for discharge at this time Patient was seen in the ED for abdominal pain on the work-up he was negative a lthough there was some RBCs in the urine, there is no apparent evidence of any emergency medical pathology at this time, patient was advised follow-up with their primary care provider /physician in the next 24-48 hours and to return to the ED before then if any new or worsening / concerning symptoms had developed. All questions and concerns were addressed at time of disposition Dragon Disclaimer: Dragon Disclaimer: This electronic medical record was generated, in whole or in part, using a voice recognition dictation system. Departure Departure: Impression: Primary Impression: Epigastric pain Disposition: HOME / SELF CARE / HOMELESS Condition: IMPROVED Referrals: MAGNO ZABALA MD (PCP) Within 48 hours Patient Instructions: Abdominal Pain, Diet for Kidney Stones, Kidney Stones Additional Instructions: Your test they were okay, the test on the heart were just fine, nothing to be concerned about, you did have some red blood cells in your urine, nothing concerning either but you could have passed a kidney stone, I recommend that you drink plenty of fluids, I going to start you on some pain medicine, I want you to follow-up with your primary care doctor in the next 48 hours, return to the emergency room before follow-up of any new or worsening/concerning symptoms develop Scripts Famotidine (FAMOTIDINE) 20 Mg Tablet 1 TAB PO BID PRN for PAIN for 20 Days, #30 TAB 5 Refills Prov: DANTE FLORES MD 11/07/20 Naproxen Sodium (ANAPROX DS) 550 Mg Tablet 1 TAB PO BID PRN for PAIN for 7 Days, #15 TAB 0 Refills Prov: DANTE FLORES MD 11/07/20 DANTE FLORES MD Nov 07, 2020 00:59
--- NOTE | 2020-11-07 02:12 | EKG ---
[address] [address] Test Date: 2020-11-07 Test Time: 00:56:56 Pat Name: FABIAN REN Department: Room: Gender: F [employer] Analyst: CESAR : 1990 Requested By: DANTE FLORES Order Number: [id number] Reading MD: Measurements Intervals [place] Rate: 59 P: 47 MN: 174 QRS: 67 QRSD: 90 T: 23 QT: 438 QTc: 438 Interpretive Statements SINUS RHYTHM ATRIAL PREMATURE COMPLEX(ES) OTHERWISE NORMAL ECG RI6.02 No previous ECG available for comparison
[2020-11-07] MEDS ORDERED: IBUPROFEN 600 MG TABLET. PO ONE (02:30)
[2020-11-07] MEDS ORDERED: FAMOTIDINE 20 MG TABLET PO ONE (02:30)
[2020-11-07 02:46] LABS: BASO # 0.1 x10^3/uL (0.0-0.2); BASO % 1 % (0-3); EOS # 0.1 x10^3/uL (0.0-0.7); EOS % 1 % (0-3); HEMATOCRIT 40.7 % (36.0-47.0); LYMPH % 32 % (24-48); MEAN CORPUSCULAR HEMOGLOBIN 33 pg (25-35); MEAN CORPUSCULAR HGB CONC 35 g/dL (31-37); MEAN CORPUSCULAR VOLUME 95 fL (79-100); MONO # 0.4 x10^3/uL (0.0-1.1); MONO % 5 % (0-9); NEUT # 5.8 x10^3uL (1.8-7.7); NEUT % 61 % (31-73); PLATELET COUNT 231 x10^3/uL (140-400); RED BLOOD COUNT 4.29 x10^6/uL (3.50-5.40); RED CELL DISTRIBUTION WIDTH 12.4 % (11.5-14.5); WHITE BLOOD COUNT 9.5 x10^3/uL (4.0-11.0)
[2020-11-07 02:53] LABS: CALCIUM 8.7 mg/dL (8.5-10.1); CREATININE 0.5 mg/dL (0.6-1.0); GFR 143.9; POTASSIUM 4.1 mmol/L (3.5-5.1)
[2020-11-07 02:54] LABS: CLARITY,URINE CLOUDY
[2020-11-07 02:55] LABS: BACTERIA,URINE FEW /HPF (0-FEW); COLOR,URINE BROWN; RBC,URINE >40 /HPF (0-2); SQUAMOUS EPITHELIAL CELL,UR MANY /LPF
[2020-11-07 02:56] LABS: U PREG PATIENT NEGATIVE (NEG)
[2020-11-07 02:58] LABS: ALBUMIN 3.8 g/dL (3.4-5.0); ALBUMIN/GLOBULIN RATIO 1.5 (1.0-1.7); TOTAL BILIRUBIN 0.4 mg/dL (0.2-1.0); TOTAL PROTEIN 6.4 g/dL (6.4-8.2)
[2020-11-07] MEDS ORDERED: FAMO20TA5 PO (03:12)
[2020-11-07] MEDS ORDERED: NAPR-682 PO (03:12)
[2020-11-07 04:00] VITALS: BP 128/82
--- NOTE | 2020-11-07 04:53 | RAD ---
EXAM: CHEST ONE VIEW. HISTORY: Epigastric pain. COMPARISON: 10/27/2020. FINDINGS: A frontal view of the chest is obtained. There are no confluent infiltrates. There is no pneumothorax or pleural effusion. The heart is not en larged. IMPRESSION: 1. No confluent infiltrates. Electronically signed by: Annette Downs MD (11/07/2020 4:50 AM) [facility]
== END 2020-11-07 04:10 | disposition home or self-care (01) ==
LOC: ER 23:06
DX: R10.13 Epigastric pain (principal); K21.9 Gastro-esophageal reflux disease without esophagitis; G43.909 Migraine, unspecified, not intractable, without status migrainosus; Z87.442 Personal history of urinary calculi; Z90.49 Acquired absence of other specified parts of digestive tract; Z98.890 Other specified postprocedural states; Z98.51 Tubal ligation status; Z88.8 Allergy status to other drugs, medicaments and biological substances
CPT/HCPCS: 36415; 71045; 80053; 81001; 81025; 83690; 85025; 93005; 99285

== ENCOUNTER 2020-12-11 21:13 | Emergency (ER) | payer MEDICAID ==
[~2020-12-11] VITALS: Ht 157.5 cm; Wt 86.6 kg
[~2020-12-11 21:13] MED LIST changes: +FAMO20TA5 PO; +NAPR-682 PO
[2020-12-11 21:25] VITALS: BP 139/90
--- NOTE | 2020-12-11 23:12 | PHYS DOC ---
Past History Past Medical History: GERD, Kidney Stones, Migraines (MISAEL BLANCO) Past Surgical History: Cholecystectomy, , Tubal ligation Additional Past Surgical Histo: kidney stones (MISAEL BLANCO) Alcohol Use: None (MISAEL BLANCO) General Adult EDM: Chief Complaint: EARACHE/EAR PAIN Problems: (1) Ear pain (2) Cough (3) Voice absence (MISAEL BLANCO) HPI: HPI: Patient is a 30 year old female who presents with bilateral ear pain cough, sore throat and voice absence with onset today. Patient denies fever and sick contacts. Patient denies headache, chest pain, palpitations, shortness of breath. Patient did request a Covid swab and a note for work. Patient has no other complaints at this time. (MISAEL BLANCO) Review of Systems: Review of Systems: ROS negative except as mentioned in HPI. (MISAEL BLANCO) Allergies: Allergies: Allergies Coded Allergies Type Severity Reaction Last Updated Verified diphenhydramine Allergy Intermediate IV form 06/24/20 Yes (MISAEL BLANCO) Physical Exam: PE: Constitutional: Well developed, well nourished, no acute distress, non-toxic appearance. [] HENT: Normocephalic, atraumatic, bilateral external ears normal, ears have excess cerumen, but ear canals are nonerythematous. Oropharynx moist, no oral exudates, postnasal drip present, nose normal. [] Eyes: Conjunctiva normal, no discharge. [] Cardiovascular:Heart rate regular rhythm, no murmur [] Lungs & Thorax: Bilateral breath sounds clear to auscultation [] (MISAEL BLANCO) Current Patient Data: Labs: Laboratory Tests Test 12/11/20 22:09 POC Urine HCG, Qualitative hcg negative (Negative) Vital Signs: Vital Signs Date Time Temp Pulse Resp B/P (MAP) Pulse Ox O2 Delivery O2 Flow Rate FiO2 12/11/20 21:25 99.3 99 18 139/90 97 Room Air (MISAEL BLANCO) EKG: EKG: [] (MISAEL BLANCO) Radiology/Procedures: Radiology/Procedures: [] (MISAEL BLANCO) Heart Score: C/O Chest Pain: No (MISAEL BLANCO) Course & Med Decision Making: Course & Med Decision Making Pertinent Labs and Imaging studies reviewed. (See chart for details) Patient states that with her symptoms, her employer wants a negative Covid swab test result. (MISAEL BLANCO) Dragon Disclaimer: Dragon Disclaimer: This electronic medical record was generated, in whole or in part, using a voice recognition dictation system. (MISAEL BLANCO) Departure Departure: Impression: Primary Impression: Sinusitis Qualified Codes: J01.90 - Acute sinusitis, unspecified Disposition: HOME / SELF CARE / HOMELESS Condition: STABLE Referrals: MAGNO ZABALA MD (PCP) Patient Instructions: Sinusitis, [id number] Additional Instructions: As discussed, a humidifier in the bedroom at night will help prevent a sore throat due to dried postnasal drip. Additionally, able to keep mucous moist and easier to be cleared from the nose. You may also use [id number] nasal decongestants. You may follow-up with your primary care provider if your symptoms do not resolve in the next few days with consistent use of mentioned therapy. Attending Signature Attending Signature I have participated in the care of this patient and I have reviewed and agree with all pertinent clinical information above including history, exam, and recommendations. (JOSHUA GODWIN MD) MISAEL BLANCO Dec 11, 2020 23:12 JOSHUA GODWIN MD Dec 14, 2020 18:20
== END 2020-12-11 23:20 | disposition home or self-care (01) ==
LOC: ER 21:16
DX: J01.90 Acute sinusitis, unspecified (principal); H92.03 Otalgia, bilateral; K21.9 Gastro-esophageal reflux disease without esophagitis; G43.909 Migraine, unspecified, not intractable, without status migrainosus; Z20.822 Contact with and (suspected) exposure to COVID-19; Z87.442 Personal history of urinary calculi; Z88.8 Allergy status to other drugs, medicaments and biological substances
CPT/HCPCS: 81025; 99283; C9803; U0003

== ENCOUNTER 2021-02-07 13:03 | Emergency (ER) | payer MEDICAID ==
[~2021-02-07] VITALS: Ht 157.5 cm; Wt 90.0 kg
[2021-02-07 13:13] VITALS: BP 141/85
--- NOTE | 2021-02-07 13:40 | PHYS DOC ---
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 States that she was exposed to somebody with known Covid approximately 3 days ago and over the last day and a half or so she has had a whole head headache, 6 out of 10, dull and achy in nature it is not quite as bad as a migraine that she has but feels somewhat similar. States she is taken some Tylenol at home with minimal relief. Denies any changes in vision, numbness/weakness/tingling, neck pain, chest pain, shortness of breath, abdominal pain, nausea, vomiting, diarrhea. Denies any fevers, sore throat. States he is eating and drinking normally for her. States he is making urine and stool normally for her. Review of Systems Review of Systems Review of systems otherwise unremarkable except noted in HPI Allergies Allergies Allergies Coded Allergies Type Severity Reaction Last Updated Verified diphenhydramine Allergy Intermediate IV form 06/24/20 Yes Physical Exam Physical Exam Constitutional: Well developed, well nourished, no acute distress, non-toxic appearance. [] HENT: Normocephalic, atraumatic, bilateral external ears normal, oropharynx x[address] st, no oral exudates, nose normal. [] Eyes: PERRLA, EOMI, conjunctiva normal, no discharge. [] Neck: Normal range of motion, no tenderness, supple, no stridor. [] Cardiovascular:Heart rate regular rhythm, no murmur [] Lungs & Thorax: Bilateral breath sounds clear to auscultation [] Abdomen: soft, no tenderness, no masses, no pulsatile masses. [] Skin: Warm, dry, no erythema, no rash. [] Back: No tenderness, no CVA tenderness. [] Extremities: No tenderness, no cyanosis, no clubbing, ROM intact, no edema. [] Neurologic: Alert and oriented X 3, normal motor function, normal sensory function, able to sit, stand and walk without issue, no focal deficits noted. [] Psychologic: Affect normal, judgement normal, mood normal. [] Current Patient Data Vital Signs Vital Signs Date Time Temp Pulse Resp B/P (MAP) Pulse Ox O2 Delivery O2 Flow Rate FiO2 02/07/21 13:13 98.7 94 20 141/85 (103) 100 Room Air EKG EKG [] Radiology/Procedures Radiology/Procedures [] Heart Score C/O Chest Pain: No Risk Factors: Risk Factors: DM, Current or recent (<one month) smoker, HTN, HLP, family history of CAD, obesity. Risk Scores: Risk Factors: DM, Current or recent (<one month) smoker, HTN, HLP, family history of CAD, obesity. Course & Med Decision Making Course & Med Decision Making Patient is a 30-year-old female who presents wanting a Covid swab and treatment for headache Vital signs not concerning. Physical exam noted above. Covid swab pending. 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 Advised not to take any of her medications until she gets home and is able to sleep as these medications will make her sleepy and she cannot drive or do anything that would require any kind of focus. Patient states that after her and she is, take the medicine and go to bed. Advised to call her primary care physician in the morning to update on ED visit and set up a follow-up. Gave Covid instructions and quarantine education. Gave return precautions to the ED. Patient grateful, verbalized understanding and agreed with plan of discharge. Dragon Disclaimer Dragon Disclaimer This electronic medical record was generated, in whole or in part, using a voice recognition dictation system. Departure Departure: Impression: Primary Impression: Exposure to COVID-19 virus Additional Impression: Headache Disposition: HOME / SELF CARE / HOMELESS Condition: GOOD Referrals: ROSANNA ZABALA Patient Instructions: General Headache Without Cause Additional Instructions: Thank you for coming into the emergency department today and allowing us to take care of you. Please read all the attached information carefully to go back over some of the things we discussed. Please take all of the headache medicine that you were given as we discussed and not until you get home and are able to go to bed. Please do not go to work, drive or do anything important that she need focus for while taking any of these medications. It is very important that you go right to bed after taking them. Please call your primary care physician in the morning to update on your ED visit. Please come back with new or concerning symptoms as we discussed. You have been tested for or diagnosed with COVID-19. It is an infection caused by a new type of coronavirus. COVID-19 will cause cold-like or mild flu symptoms in most. It can cause more severe symptoms like problems breathing in some. There is no treatment for COVID-19. The body will clear the infection over time. Self-care will help to ease discomfort. Steps to Take: Self-Care Rest as needed. Healthy habits may help you feel better. Steps include: Choose healthy foods including fruits and vegetables. Drink water throughout the day. Get plenty of sleep each night. If you smoke, try to quit. It may ease breathing. Avoid alcohol. Keep Others Healthy The virus can spread to others. Droplets are released every time you sneeze or cough. The droplets can get into the mouth, nose, or eyes of people near you and lead to infection. To lower the chances of spreading COVID-19 to others: Stay at home until your doctor has said it is safe to leave. If you tested positive this will mean staying isolated until both of the following are true: At least 7 days have passed since the start of illness. You are free of fever for at least 72 hours without the use of medicine. During this time: - Avoid public areas, events, or transportation. Do not return to work or school until your doctor has said it is safe to do so. - Call ahead if you need to go to a medical center. Let them know you may have COVID-19. It will help them guide you where to go. They may also ask you to wear a facemask when you come to the office. - If you call for emergency medical services, let them know you may have COVID- 19. While at home: - Try to avoid close contact with others. Stay about 6 feet away. - If possible, spend most of your time in a separate room from others. - Use a face mask if you will be in close contact with others such as sharing a room or vehicle. - Have someone wipe down common surfaces in the home. Use household tribal delegate every day on areas like doorknobs, counters, or sinks. - Cough or sneeze into a tissue. Throw the tissue away right after use. If a tissue is not available, cough or sneeze into your elbow. - Wash your hands often. Wash them after sneezing or coughing. Use soap and w ater and wash for at least 20 seconds. Alcohol based hand still cleaner tube can be used if soap and water is not available. - Do not prepare food for others. Avoid sharing personal items like forks, spoons, or toothbrushes. - Avoid close contact with pets while you are sick. There is no evidence of the virus passing to pets. This is a safety step until more is known about this virus. Isolation can be frustrating. Social interaction can help. Keep in touch with friends and family through phone and tech options. You can still interact with others in your home, just keep a safe distance of about 6 feet. Follow-up: Your doctors office will check in with you to see if there are any changes in your health. You may be asked to keep track of symptoms to share with them. They will also let you know when you are clear to be in public again. Problems to Look Out For: Contact your doctor if your recovery is not going as you expect. Get emergency care if you have problems such as: - Trouble breathing - Nonstop chest pain or pressure - Changes in awareness, confusion, or problems waking - Lips or face have bluish color - Worsening of symptoms If you think you have an emergency, call for emergency medical services right away. As taken from [facility] Problem Qualifiers GUSTAVO BANG MD Feb 07, 2021 13:40
[2021-02-07] MEDS ORDERED: METOCLOPRAMIDE 10 MG TABLET PO ONE (13:45)
[2021-02-07] MEDS ORDERED: IBUPROFEN 600 MG TABLET. PO ONE (13:45)
[2021-02-07] MEDS ORDERED: ACETAMINOPHEN 500 MG TABLET PO ONE (13:45)
[2021-02-07] MEDS ORDERED: diphenhydrAMINE HCL 25 MG CAPSULE PO ONE (13:45)
[2021-02-07] MEDS ORDERED: oxyCODONE IR 5 MG TABLET PO PRN (13:45)
== END 2021-02-07 14:11 | disposition home or self-care (01) ==
LOC: ER 13:03
DX: G43.909 Migraine, unspecified, not intractable, without status migrainosus (principal); K21.9 Gastro-esophageal reflux disease without esophagitis; Z90.49 Acquired absence of other specified parts of digestive tract; Z98.51 Tubal ligation status; Z20.822 Contact with and (suspected) exposure to COVID-19; Z87.442 Personal history of urinary calculi
CPT/HCPCS: 99284; C9803; Q0163; U0003

== ENCOUNTER 2021-03-27 14:00 | Emergency (ER) | payer MEDICAID ==
[~2021-03-27] VITALS: Ht 157.5 cm; Wt 90.0 kg
--- NOTE | 2021-03-27 14:21 | PHYS DOC ---
Past History Past Medical History: GERD, Kidney Stones, Migraines Past Surgical History: Cholecystectomy, , Tubal ligation, Other Additional Past Surgical Histo: surgery for kidney stone removal Alcohol Use: Occasionally General Adult EDM: Chief Complaint: MULTIPLE COMPLAINTS HPI: HPI: Patient is a 30-year-old female who presents to the emergency department requesting a Covid test. Patient reports that she had a positive Covid exposure. She is experiencing 1 week of fatigue, body aches, nausea, loss of smell that started yesterday and generalized headaches. Patient's vital signs are stable and she is in no acute distress. Patient denies shortness of breath, cough, fevers. Review of Systems: Review of Systems: Constitutional: See HPI Respiratory: See HPI GI: See HPI Musculoskeletal: See HPI Neurologic: See HPI Allergies: Allergies: Allergies Coded Allergies Type Severity Reaction Last Updated Verified diphenhydramine Allergy Intermediate IV form 03/27/21 Yes Physical Exam: PE: Constitutional: Well developed, well nourished, no acute distress, non-toxic appearance. [] HENT: Normocephalic, atraumatic, bilateral external ears normal, oropharynx moist, no oral exudates, nose normal. [] Eyes: PERRL, EOMI, conjunctiva normal, no discharge. [] Neck: Normal range of motion, no tenderness, supple, no stridor. [] Cardiovascular:Heart rate regular rhythm, no murmur [] Lungs & Thorax: Bilateral breath sounds clear to auscultation [] Abdomen: Soft and flat Skin: Warm, dry, no erythema, no rash. [] Back: Full range of motion Extremities: No tenderness, no cyanosis, no clubbing, ROM intact, no edema. [] Neurologic: Alert and oriented X 3, normal motor function, normal sensory function, no focal deficits noted. [] Psychologic: Affect normal, judgement normal, mood normal. [] Current Patient Data: Vital Signs: Vital Signs Date Time Temp Pulse Resp B/P (MAP) Pulse Ox O2 Delivery O2 Flow Rate FiO2 03/27/21 14:10 98.4 94 18 129/80 (96) 95 Room Air EKG: EKG: [] Radiology/Procedures: Radiology/Procedures: [] Heart Score: C/O Chest Pain: N/A Risk Factors: Risk Factors: DM, Current or recent (<one month) smoker, HTN, HLP, family history of CAD, obesity. Risk Scores: Score 0 - 3: 2.5% MACE over next 6 weeks - Discharge Home Score 4 - 6: 20.3% MACE over next 6 weeks - Admit for Clinical Observation Score 7 - 10: 72.7% MACE over next 6 weeks - Early Invasive Strategies Course & Med Decision Making: Course & Med Decision Making Pertinent Labs and Imaging studies reviewed. (See chart for details) [] Patient was seen in the emergency department requesting a Covid test. Patient reports that she had a positive Covid exposure and is experiencing fatigue, body aches, loss of smell and headache. Patient will be Covid tested and she will be notified of those results when they become available in approximately 1 to 2 days. Patient advised to self isolate pending results. Patients vital signs are stable, she is in no acute distress, she denies any shortness of breath. Patient advised to perform symptomatic and supportive treatment like Tylenol and ibuprofen for her pain or fevers. I discussed with patient all findings and diagnostic testing as well as the need to follow-up with PCP for further evaluation and treatment or return to the ER if any new or worsening symptoms. Strict return precautions were also discussed at length. Patient voiced understanding and agreement with the plan. Patient is hemodynamically stable at the time of disposition. Laila Disclaimer: Laila Disclaimer: This electronic medical record was generated, in whole or in part, using a voice recognition dictation system. Departure Departure: Impression: Primary Impression: Person under investigation for COVID-19 Disposition: HOME / SELF CARE / HOMELESS Condition: GOOD Referrals: MAGNO ZABALA MD (PCP) Patient Instructions: Fatigue Additional Instructions: You were seen in the emergency department today for fatigue, body aches, loss of smell and headache. You were Covid tested in the emergency department and you will be notified of those results when they become available in approximately 1 to 2 days. Please self isolate until you receive these results. For your pain or fevers please take Tylenol and/or ibuprofen. Follow-up with your primary care provider tomorrow regarding your ER visit. Return to the emergency department if you develop shortness of breath, intractable nausea or vomiting, high fevers refractory to treatment, chest pain, severe weakness. JAMES LOCKWOOD [employer] Mar 27, 2021 14:21
[2021-03-27 14:32] VITALS: BP 128/82
== END 2021-03-27 14:34 | disposition home or self-care (01) ==
LOC: ER 14:00
DX: G43.909 Migraine, unspecified, not intractable, without status migrainosus (principal); Z20.822 Contact with and (suspected) exposure to COVID-19; R53.83 Other fatigue; M79.10 Myalgia, unspecified site; R11.0 Nausea; R43.9 Unspecified disturbances of smell and taste; K21.9 Gastro-esophageal reflux disease without esophagitis; Z88.5 Allergy status to narcotic agent
CPT/HCPCS: 99283; C9803; U0003

== ENCOUNTER 2021-04-18 07:56 | Emergency (ER) | payer MEDICAID ==
[~2021-04-18] VITALS: Ht 157.5 cm; Wt 90.0 kg
--- NOTE | 2021-04-18 09:38 | PHYS DOC ---
Past History Past Medical History: GERD, Kidney Stones, Migraines Past Surgical History: Cholecystectomy, , Tubal ligation, Other Additional Past Surgical Histo: surgery for kidney stone removal Alcohol Use: Occasionally General Adult EDM: Chief Complaint: ABDOMINAL PAIN HPI: HPI: 30-year-old female presents with epigastric abdominal pain. The patient states that she started having pain 3 days ago in this area. It radiates around through to her back sometimes. She tells me it seems to be getting worse and that is why she came in today. She is tender in the epigastric and right side of her abdomen. She denies dysuria or increased urinary frequency. She has had her gallbladder removed but no other abdominal surgery. Denies fever or chills. Review of Systems: Review of Systems: Constitutional: Denies fever or chills Eyes: Denies change in visual acuity HENT: Denies nasal congestion or sore throat Respiratory: Denies cough or shortness of breath Cardiovascular: Denies chest pain or edema GI: Epigastric and right-sided abdominal pain, nausea,. : Denies dysuria Musculoskeletal: Denies back pain or joint pain Integument: Denies rash Neurologic: Denies headache, focal weakness or sensory changes Endocrine: Denies polyuria or polydipsia Lymphatic: Denies swollen glands Psychiatric: Denies depression or anxiety Allergies: Allergies: Allergies Coded Allergies Type Severity Reaction Last Updated Verified diphenhydramine Allergy Intermediate IV form 03/27/21 Yes Physical Exam: PE: Constitutional: Well developed, well nourished, obese, no acute distress, non- toxic appearance. [] HENT: Normocephalic, atraumatic, bilateral external ears normal, oropharynx moist, no oral exudates, nose normal. [] Eyes: PERRLA, EOMI, conjunctiva normal, no discharge. [] Neck: Normal range of motion, no tenderness, supple, no stridor. [] Cardiovascular: Heart rate regular rhythm, no murmur [] Lungs & Thorax: Bilateral breath sounds clear to auscultation [] Abdomen: Bowel sounds normal, soft, epigastric and right lower quadrant t enderness, no masses, no pulsatile masses. [] Skin: Warm, dry, no erythema, no rash. [] Back: No tenderness, no CVA tenderness. [] Extremities: No tenderness, no cyanosis, no clubbing, ROM intact, no edema. [] Neurologic: Alert and oriented X 3, normal motor function, normal sensory function, no focal deficits noted. [] Psychologic: Affect normal, judgement normal, mood normal. [] EKG: EKG: [] Radiology/Procedures: Radiology/Procedures: [] Impressions: EXAM: CT Abdomen and Pelvis with IV contrast CLINICAL HISTORY: Reason: epigastric pain, OMNI 300, 75ml / Spl. Instructions: / History: . COMPARISON: Unavailable the time of dictation. TECHNIQUE: Helical CT of the abdomen and pelvis was performed following the administration of intravenous contrast. Axial, coronal and sagittal reformatted images were generated. PQRS compliance statement - One or more of the following individualized dose reduction techniques were utilized for this study: 1. Automated exposure control 2. Adjustment of the mA and/or kV according to patient size 3. Use of iterative reconstruction technique FINDINGS: Lower Chest: Subtle mosaic attenuation of the visualized lung bases suggestive of small airway disease. Subsegmental atelectasis within the lingula. Abdomen and Pelvis: Liver is normal in size and attenuation. Gallbladder surgically absent. No biliary ductal dilation. The spleen, right adrenal gland, and pancreas are unremarkable. 2 cm hypodense nodule in the left adrenal gland with attenuation of fat, consistent with adrenal adenoma. Normal parenchymal enhancement of bilateral kidneys. Scarring likely postsurgical in etiology in the inferior pole the right kidney. No obstructing nephrolithiasis or hydronephrosis. There is nonspecific mild mucosal enhancement distal portion of the stomach/gastric antrum and to a lesser extent in the first and second portion of the duodenum. No significant bowel wall thickening or associated inflammatory changes. No evidence of obstruction or focal wall thickening of the small bowel. Moderate amount of stool seen within the otherwise unremarkable colon. Appendix is unremarkable. No free intra-abdominal air or free fluid. No pathologically enlarged abdominal or pelvic adenopathy. Vasculature is normal in course and caliber. Bladder is partially decompressed. Normal uterus is present. Adnexa are unremarkable. Tiny periumbilical fat-containing hernia. Anterior abdominal wall is unremarkable. Bones: No acute or suspicious osseous abnormalities. IMPRESSION: 1. Nonspecific findings of mild mucosal enhancement in the distal stomach/proximal duodenum suggestive of mild gastroduodenitis. 2. Otherwise, no acute abnormalities in the abdomen or pelvis. 3. Moderate retention of colonic fecal material. Correlation with symptoms of constipation. 4. Left adrenal adenoma noted. Electronically signed by: Chris Medina DO (04/18/2021 10:32 AM) [facility] DICTATED AND SIGNED BY: CHRIS MEDINA DO DATE: 04/18/21 1015 CC: JOSE D HUGHES DO; MAGNO ZABALA MD ~MTH0 0 Heart Score: C/O Chest Pain: N/A Risk Factors: Risk Factors: DM, Current or recent (<one month) smoker, HTN, HLP, family history of CAD, obesity. Risk Scores: Score 0 - 3: 2.5% MACE over next 6 weeks - Discharge Home Score 4 - 6: 20.3% MACE over next 6 weeks - Admit for Clinical Observation Score 7 - 10: 72.7% MACE over next 6 weeks - Early Invasive Strategies Course & Med Decision Making: Course & Med Decision Making Pertinent Labs and Imaging studies reviewed. (See chart for details) patient CT of the abdomen and pelvis shows duodenitis and retained stool. No other acute findings. See official read for more details. Patient's labs are unremarkable. I will give her triple therapy for H. pylori as treatment for her duodenitis. I also advised that she take magnesium citrate to clear out her bowels. She is stable for discharge at this time. [] Dragon Disclaimer: Dragon Disclaimer: This electronic medical record was generated, in whole or in part, using a voice recognition dictation system. Departure Departure: Impression: Primary Impression: Duodenitis Additional Impression: Constipation Disposition: HOME / SELF CARE / HOMELESS Condition: STABLE Referrals: MAGNO ZABALA MD (PCP) Patient Instructions: Abdominal Pain (Nonspecific) Scripts Amoxicillin (AMOXICILLIN) 500 Mg Tablet 2 TAB PO BID for duodenitis for 10 Days, #40 TAB Prov: JOSE D HUGHES DO 04/18/21 Pantoprazole Sodium (PROTONIX) 40 Mg Tablet.dr 1 TAB PO DAILY for duodenitis, #30 TAB 0 Refills Prov: JOSE D HUGHES DO 04/18/21 Clarithromycin (CLARITHROMYCIN) 500 Mg Tablet 1 TAB PO BID for duodenitis, #28 TAB Prov: JOSE D HUGHES DO 04/18/21 JOSE D HUGHES DO Apr 18, 2021 09:38
[2021-04-18] MEDS ORDERED: ONDANSETRON PF 4 MG/2 ML VIAL. IVP ONE (09:45)
[2021-04-18] MEDS ORDERED: IOHEXOL 300 MG/ML 75 ML VIAL. IV ONE ×2 (09:45)
[2021-04-18] MEDS ORDERED: MORPHINE SULFATE 4 MG/ML DISP.SYRIN. IV ONE (09:45)
--- NOTE | 2021-04-18 10:34 | RAD ---
EXAM: CT Abdomen and Pelvis with IV contrast CLINICAL HISTORY: Reason: epigastric pain, OMNI 300, 75ml / Spl. Instructions: / History: . COMPARISON: Unavailable the time of dictation. TECHNIQUE: Helical CT of the abdomen and pelvis was performed following the administration of intrave nous contrast. Axial, coronal and sagittal reformatted images were generated. PQRS compliance statement - One or more of the following individualized dose reduction techniques wer e utilized for this study: 1. Automated exposure control 2. Adjustment of the mA and/or kV according to patient size 3. Use of iterative reconstruction technique FINDINGS: Lower Chest: Subtle mosaic attenuation of the visualized lung bases suggestive of small airway disease. Subsegment al atelectasis within the lingula. Abdomen and Pelvis: Liver is normal in size and attenuation. Gallbladder surgically absent. No biliary ductal dilation. T he spleen, right adrenal gland, and pancreas are unremarkable. 2 cm hypodense nodule in the left adre nal gland with attenuation of fat, consistent with adrenal adenoma. Normal parenchymal enhancement of bilateral kidneys. Scarring likely postsurgical in etiology in the inferior pole the right kidney. No obstructing nephrolithiasis or hydronephrosis. There is nonspecific mild mucosal enhancement distal portion of the stomach/gastric antrum and to a l conrad extent in the first and second portion of the duodenum. No significant bowel wall thickening or associated inflammatory changes. No evidence of obstruction or focal wall thickening of the small vipul wel. Moderate amount of stool seen within the otherwise unremarkable colon. Appendix is unremarkable. No free intra-abdominal air or free fluid. No pathologically enlarged abdominal or pelvic adenopathy . Vasculature is normal in course and caliber. Bladder is partially decompressed. Normal uterus is present. Adnexa are unremarkable. Tiny periumbilical fat-containing hernia. Anterior abdominal wall is unremarkable. Bones: No acute or suspicious osseous abnormalities. IMPRESSION: 1. Nonspecific findings of mild mucosal enhancement in the distal stomach/proximal duodenum suggestiv e of mild gastroduodenitis. 2. Otherwise, no acute abnormalities in the abdomen or pelvis. 3. Moderate retention of colonic fecal material. Correlation with symptoms of constipation. 4. Left adrenal adenoma noted. Electronically signed by: Chris Hilton DO (04/18/2021 10:32 AM) [facility]
[2021-04-18 10:35] LABS: BASO # 0.1 x10^3/uL (0.0-0.2); BASO % 1 % (0-3); EOS # 0.1 x10^3/uL (0.0-0.7); EOS % 1 % (0-3); HEMATOCRIT 40.2 % (36.0-47.0); HEMOGLOBIN 13.4 g/dL (12.0-15.5); LYMPH # 2.3 x10^3/uL (1.0-4.8); LYMPH % 19 % (24-48); MEAN CORPUSCULAR HEMOGLOBIN 32 pg (25-35); MEAN CORPUSCULAR HGB CONC 33 g/dL (31-37); MEAN CORPUSCULAR VOLUME 95 fL (79-100); MONO # 0.5 x10^3/uL (0.0-1.1); MONO % 4 % (0-9); NEUT # 8.9 x10^3uL (1.8-7.7); NEUT % 75 % (31-73); PLATELET COUNT 219 x10^3/uL (140-400); RED BLOOD COUNT 4.23 x10^6/uL (3.50-5.40); RED CELL DISTRIBUTION WIDTH 12.1 % (11.5-14.5); WHITE BLOOD COUNT 11.8 x10^3/uL (4.0-11.0)
[2021-04-18 10:43] LABS: CALCIUM 7.9 mg/dL (8.5-10.1); CREATININE 0.6 mg/dL (0.6-1.0); GFR 116.6; POTASSIUM 3.7 mmol/L (3.5-5.1)
[2021-04-18 10:48] LABS: ALBUMIN 3.5 g/dL (3.4-5.0); ALBUMIN/GLOBULIN RATIO 1.3 (1.0-1.7); TOTAL BILIRUBIN 0.2 mg/dL (0.2-1.0); TOTAL PROTEIN 6.2 g/dL (6.4-8.2)
[2021-04-18] MEDS ORDERED: PANT40TA3 PO (10:54)
[2021-04-18] MEDS ORDERED: AMOX500T PO (10:54)
[2021-04-18] MEDS ORDERED: CLAR-7 PO (10:54)
[2021-04-18 11:12] LABS: BACTERIA,URINE 0 /HPF (0-FEW); BILIRUBIN,URINE NEG (NEG); CLARITY,URINE CLEAR; COLOR,URINE YELLOW; GLUCOSE,URINE NEG (NEG); NITRITE,URINE NEG (NEG); SQUAMOUS EPITHELIAL CELL,UR FEW /LPF; UROBILINOGEN,URINE 0.2 mg/dL (0.2 mg/dL)
[2021-04-18] MEDS ORDERED: PANTOPRAZOLE IV 40 MG VIAL. IVP ONE (11:15)
[2021-04-18] MEDS ORDERED: FAMOTIDINE 20 MG/2 ML VIAL IVP ONE (11:15)
[2021-04-18 11:20] VITALS: BP 118/74
== END 2021-04-18 11:25 | disposition home or self-care (01) ==
LOC: ER 07:56
DX: K29.80 Duodenitis without bleeding (principal); K59.00 Constipation, unspecified; K21.9 Gastro-esophageal reflux disease without esophagitis; G43.909 Migraine, unspecified, not intractable, without status migrainosus; Z87.442 Personal history of urinary calculi; Z90.49 Acquired absence of other specified parts of digestive tract; Z98.890 Other specified postprocedural states; Z98.51 Tubal ligation status; Z88.8 Allergy status to other drugs, medicaments and biological substances
CPT/HCPCS: 36415; 74177; 80053; 81001; 81025; 83690; 85025; 96374; 96375; 99285; C9113; J2270; J2405; J3490; Q9967